=== PATIENT | male | born 1980 | race Caucasian/White ===

== ENCOUNTER 2017-02-26 03:07 | Emergency (ER) | payer SELFPAY ==
[~2017-02-26] VITALS: Ht 177.8 cm; Wt 82.7 kg
[2017-02-26 03:13] VITALS: Ht 177.8 cm; Wt 82.7 kg
[2017-02-26] MEDS ORDERED: KETOROLAC 30 MG INJ IM STA (03:38)
--- NOTE | 2017-02-26 03:53 | ERD ---
ER Documentation Chief Complaint Date/Time DATE: 02/26/17 TIME: 03:52 Chief Complaint etoh intoxication , sp ground level fall, c/o left rib pain HPI 36-year-old man brought in by EMS for public intoxication and complaints of left lateral costal margin pain after tripping and falling onto his left side. He denies head or neck injury, no loss of consciousness, no abdominal pain, no vomiting. ROS All systems reviewed and are negative except as per history of present illness. Allergies Allergies: Coded Allergies: No Known Allergy (Unverified , 02/26/17) PMhx/Soc None Medical and Surgical Hx: pt denies Medical Hx, pt denies Surgical Hx History of Surgery: No Anesthesia Reaction: No Hx Neurological Disorder: No Hx Respiratory Disorders: No Hx Cardiac Disorders: No Hx Psychiatric Problems: No Hx Miscellaneous Medical Probl: No Hx Alcohol Use: No Hx Substance Use: Yes (MARIJUANA) Hx Tobacco Use: Yes Smoking Status: Current every day smoker FmHx Family History: No diabetes Physical Exam Vitals Vital Signs Date Time Temp Pulse Resp B/P Pulse Ox O2 Delivery O2 Flow Rate FiO2 02/26/17 03:13 97.8 94 20 136/79 98 Physical Exam GENERAL: Well-developed, well-nourished, appears intoxicated with alcohol on breath HEENT: Moist mucous membranes, pink conjunctiva, no cervical spine tenderness or step-off deformities, no goiter, no jaundice or icterus, extraocular movements intact without pain. No submandibular induration, and no pharyngeal erythema NEURO: Alert and oriented 3, cranial nerves II through XII intact bilaterally, pupils equal round reactive to light, no focal deficits or facial asymmetry, sensation intact distally Strength 5/5 in upper and lower extremities bilaterally CARDIAC: Regular rate and rhythm, no murmurs rubs or gallops LUNGS: Clear bilaterally no wheezing crackles or stridor ABDOMEN: Soft nontender, no guarding, no rigidity, no rebound, no psoas sign no obturator sign. Normoactive bowel sounds SKIN: Warm and dry to touch, no abrasions, contusions, or hematomas, no lacerations, no ecchymosis, no target lesions, and without ulcers EXTREMITIES: No clubbing cyanosis or edema, calves are bilaterally symmetrical, no Homans sign, no popliteal cord sign. Distal pulses equal and bilateral PSYCH: Normal affect without agitation or irritability Results 24 hrs Current Medications Medications (Trade) Dose Ordered Sig/Prosper Route PRN Reason Start Time Stop Time Status Last Admin Dose Admin Ketorolac Tromethamine (Toradol) 30 mg ONCE STAT IM 02/26/17 03:38 02/26/17 03:39 DC 02/26/17 03:44 Procedures/MDM CT scan of the brain was negative for acute bleed mass or shift. One AP view of the chest performed, read by me reveals no acute infiltrates, normal mediastinum, sharp costophrenic and cardiac borders, no air under the diaphragm. Otherwise unremarkable chest x-ray. Differential diagnoses considered, included but not limited to acute coronary syndrome, pulmonary embolism, aortic dissection, abdominal aortic aneurysm, sepsis, stroke, meningitis, encephalitis, pneumonia, appendicitis, cholecystitis , bowel obstruction, pyelonephritis, nephrolithiasis, cystitis, as well as metabolic, hematologic, and electrolyte abnormalities. As well as abscess, cellulitis, fractures, and dislocations. Patient feels much better at this time, and vital signs are normal, symptoms have improved. I did give strict instructions to return to the ED if symptoms continue or worsen, patient will otherwise follow-up with primary care physician. Patient understood instructions and agreed to plan. Disclaimer: Inadvertent spelling or grammatical errors are likely due to EHR/ dictation software use and do not reflect on the overall quality of patient care. Departure Diagnosis: Primary Impression: Alcoholic intoxication Complication of substance-induced condition: uncomplicated Qualified Code: F10.120 - Alcoholic intoxication, uncomplicated Additional Impressions: Chest wall contusion Encounter type: initial encounter Laterality: left Qualified Code: S20.212A - Chest wall contusion, left, initial encounter Rib sprain Encounter type: initial encounter Qualified Code: S23.41XA - Rib sprain, initial encounter Condition: Good MATT YIN MD February 26, 2017 03:53
[2017-02-26] MEDS ORDERED: IBUP-1542 PO (04:25)
[2017-02-26] MEDS ORDERED: CARI350T PO (04:25)
[2017-02-26 04:31] VITALS: BP 128/79; PULSE 77; RESP 20; TEMP 97.8
--- NOTE | 2017-02-26 04:36 | RADRPT ---
PROCEDURE: CT BRAIN WITHOUT CONTRAST CLINICAL INDICATION: 36-year-old male with change in mental status. TECHNIQUE: The study was performed utilizing a [employer] VCT 64-slice CT scanner. Direct axia l sections were obtained from the foramen magnum to the vertex without the use of intravenous contra st material. Sagittal and coronal reformations were obtained. One or more the following dose reduct ion techniques were utilized: automated exposure control, adjustment of the mA and/or kV according t o patient's size or use of iterative reconstruction technique. The images were viewed on a PACS [employer]. CTD/vol = 44.6 mGy; Total Exam DLP = 720.2 mGy-cm. COMPARISON: None. FINDINGS: The ventricles have a normal size, shape and position. There is no evidence for mass effect or midl ine shift. There are no intracranial areas of abnormal attenuation. There is no evidence for acute intra or extra-axial blood. The bony calvarium is intact. There is moderate mucosal thickening with in the partially visualized right frontal, ethmoid air cells and right sphenoid sinus with an air-fl uid level within the right sphenoid sinus. The mastoid air cells are without significant soft tissu e. IMPRESSION: 1. The intracranial contents are unremarkable on this noncontrast CT scan of the brain. 2. Moderate right-sided paranasal sinus disease. .Kenny Loja MD, MD Date Time Electronically viewed and signed by .eKnny Loja MD, on 02/26/2017 04:36 .M/
--- NOTE | 2017-02-26 04:39 | RADRPT ---
PROCEDURE: CHEST - 1 VIEW CLINICAL INDICATION: 36-year-old male with chest pain following trauma. TECHNIQUE: A single frontal AP supine view of the chest was performed. The images were reviewed o n a PACS workstation. COMPARISON: None. FINDINGS: The cardiomediastinal silhouette is within normal limits. There is a shallow inspiration. There is mild bibasilar subsegmental atelectasis. There is no evidence for an infiltrate. There is no evid ence for congestive heart failure. There is no evidence for pneumothorax. The osseous structures are intact. IMPRESSION: Shallow inspiration with mild bibasilar system atelectasis. .Kenny Loja MD, MD Date Time Electronically viewed and signed by .Kenny Loja MD, on 02/26/2017 04:38 .Timmy
== END 2017-02-26 04:32 | disposition home or self-care (01) ==
LOC: E/R 03:07
DX: F10.120 Alcohol abuse with intoxication, uncomplicated (principal); S20.212A Contusion of left front wall of thorax, initial encounter; S23.41XA Sprain of ribs, initial encounter; F17.210 Nicotine dependence, cigarettes, uncomplicated; W01.0XXA Fall on same level from slipping, tripping and stumbling without subsequent striking against object, initial encounter; Y92.9 Unspecified place or not applicable
CPT/HCPCS: 70450; 71010; J1885; 96372